=== PATIENT | female | born 1960 | race Caucasian/White ===

== ENCOUNTER → 2017-06-16 | Outpatient (CLI) | payer SELFPAY ==
--- NOTE | 2017-06-16 15:06 | DIREP ---
PROCEDURE:MR KNEE WITHOUT CONTRAST [Right] TECHNIQUE:Axial proton density fat sat; coronal T1 and inversion recovery; sagittal proton density, proton density fat sat and T2 weighted sequences were obtained. COMPARISON:None. INDICATIONS:KNEE PAIN FINDINGS: Menisci: The medial meniscus is intact. There is diffuse intermediate signal intensity in the anterior horn of the lateral meniscus sagittal series 601 images 16-20 consistent with degeneration. No discrete tear is seen. The remainder of the lateral meniscus is intact. Cruciate ligaments: The anterior and posterior cruciate ligaments are normal. Bones and joints space: Moderate size joint effusion is present. Mildly thickened plica is present in the lateral suprapatellar recess. There are no loose bodies. Mild joint space narrowing is present in the lateral femorotibial compartment. Moderate-sized marginal osteophytes in and smaller notch osteophytes are present in both the medial and lateral femorotibial compartments. There is full-thickness chondromalacia and in the lateral femoral condyles measuring 3.16 x 1.10 cm (AP by medial-lateral) on sagittal series 701, image 19 and coronal series 901, image 18. The articular cartilage in the medial femorotibial compartment is intact. Mild marrow edema is present in the lateral portion of the lateral tibial plateau series 901, image 18 consistent with hyperemia and stress reaction. There is no fracture identified. Collateral ligaments: The medial and lateral collateral ligaments are intact. Extensor mechanism: The quadriceps and patellar tendons are normal. The patella is intact. The articular cartilage in the patella and trochlear groove is intact. The medial and lateral retinacula are normal. The pre-femoral, suprapatellar and infrapatellar fat pads are normal. There is no prepatellar or infrapatellar bursitis. Miscellaneous: The muscles and tendons about the knee are intact. The neurovascular structures are normal. The tibiofibular joint is normal. There is a small amount of fluid in the medial gastrocnemius semimembranosus recess without distention or extravasation. There is a moderate sized septated soft tissue ganglion cyst arising off of the posterior capsule in the midline measuring 2.45 x 2.23 x 1.82 cm (cc by AP by medial-lateral) on sagittal series 601, image 13 and axial series 401, image 26. Communication with the posterior joint space is demonstrated on sagittal series 601 images 13-15. CONCLUSION: 1. Osteoarthritis in both the medial and lateral femorotibial compartments but greater laterally. 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 2. 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 3. Moderate-sized joint effusion with thickened plica in the lateral suprapatellar recess. 4. Septated soft tissue ganglion cyst arising off of the posterior capsule in the midline. Dictated by: Edson Mills M.D. on 06/16/2017 at 02:49 PM
== END | disposition home or self-care (01) ==
LOC: MRI 08:50
PROVIDERS: ATTEND Orthopaedic Surgery
DX: M17.11 Unilateral primary osteoarthritis, right knee (principal)
CPT/HCPCS: 73721